=== PATIENT | female | born 1985 | race African-American/Black ===

== ENCOUNTER 2016-11-17 07:50 | Emergency (ER) | payer OTHER ==
[~2016-11-17] VITALS: Ht 165.1 cm; Wt 93.2 kg
[2016-11-17] MEDS ORDERED: IUD IY (08:01)
[2016-11-17 08:14] VITALS: BP 120/81
== END 2016-11-17 08:52 | disposition home or self-care (01) ==
LOC: EMS 07:52
DX: S29.012A Strain of muscle and tendon of back wall of thorax, initial encounter (principal); M25.512 Pain in left shoulder; Z88.0 Allergy status to penicillin; Z91.040 Latex allergy status; V49.20XA Unspecified car occupant injured in collision with unspecified motor vehicles in nontraffic accident, initial encounter; Y93.89 Activity, other specified; Y92.413 State road as the place of occurrence of the external cause; Y99.9 Unspecified external cause status
CPT/HCPCS: 99282